=== PATIENT | male | born 1970 | race Two or more races ===

== ENCOUNTER 2018-04-13 04:38 | Emergency (ER) | payer SELFPAY ==
[2018-04-13] MEDS ORDERED: ASPIRIN 81 MG TABLET, CHEWABLE PO ONE (05:36)
--- NOTE | 2018-04-13 05:39 | RADIOLOGY REPORT (SQ) ---
EXAM DESCRIPTION: XR CHEST 2 VIEWS COMPLETED DATE/TME: 04/13/2018 00:00 CLINICAL HISTORY: 47 years Male, chest pain COMPARISON: None. FINDINGS: Moderate lung volume, clear parenchyma, normal cardiac silhouette, and intact bony thorax. IMPRESSION: No acute cardiopulmonary findings.
--- NOTE | 2018-04-13 05:41 | ER Document Report ---
ED Medical Screen (RME) - General Chief Complaint: Chest Pain Stated Complaint: CHEST PAIN Notes: 47-year-old male with hyperlipidemia presents to the emergency department with chest pain that started yesterday after eating at lunch that lasted about 5 minutes then subsided. At 3:00 this morning he had similar chest pain that woke him up was transient, and has had 3 episodes since. He describes the pain as burning and it radiated to his shoulders and his neck. Nothing provoked it. He denies fever, diaphoresis, chills, nausea, vomiting. His brother of a heart attack at the age of 36. I have greeted and performed a rapid initial assessment of this patient a comprehensive ED assessment and evaluation of the patient, analysis of test results and completion of the medical decision making process will be conducted by additional ED providers. - HPI Patient complains to provider of: chest pain Physical Exam - Vital signs Vitals: Temp Pulse Resp BP Pulse Ox 98.0 F 56 L 18 151/92 H 100 04/13/18 04:47 04/13/18 04:47 04/13/18 04:47 04/13/18 04:47 04/13/18 04:47 - Respiratory Respiratory status: No respiratory distress Chest status: Nontender Breath sounds: Normal Chest palpation: Normal - Cardiovascular Rhythm: Regular Heart sounds: Normal auscultation, S1 appreciated, S2 appreciated Murmur: No Course - Vital Signs Vital signs: Temp Pulse Resp BP Pulse Ox 98.0 F 56 L 18 151/92 H 99 04/13/18 04:47 04/13/18 04:47 04/13/18 04:47 04/13/18 04:47 04/13/18 05:06 Doctor's Discharge - Discharge Referrals: LOCALMD,NO [Primary Care Provider] - Follow up as needed
[2018-04-13 06:03] LABS: ABSOLUTE EOSINOPHILS # (AUTO) 0.1 10^3/uL (0.0-0.6); ABSOLUTE MONOCYTES (AUTO) 0.5 10^3/uL (0.1-1.4); ABSOLUTE NEUT (AUTO) 3.4 10^3/uL (1.7-8.2); BASOPHILS % (AUTO) 0.6 % (0-2); EOSINOPHILS % (AUTO) 1.9 % (0-6); HEMOGLOBIN 14.4 g/dL (13.5-17.0); LYMPHOCYTES % (AUTO) 19.6 % (13-45); MEAN CORPUSCULAR HEMOGLOBIN 31.4 pg (27.0-33.4); MEAN CORPUSCULAR HGB CONC 34.3 g/dL (32.0-36.0); MEAN CORPUSCULAR VOLUME 91 fl (80-97); MONOCYTES % (AUTO) 9.2 % (3-13); PLATELET COUNT 224 10^3/uL (150-450); RED BLOOD COUNT 4.59 10^6/uL (4.35-5.55); RED CELL DISTRIBUTION WIDTH 13.6 % (11.5-14.0); SEGMENTED NEUTROPHILS % (AUTO) 68.7 % (42-78); TOTAL CELLS COUNTED % (AUTO) 100 %
[2018-04-13 06:20] LABS: ALANINE AMINOTRANSFERASE 38 U/L (21-72); ALBUMIN 4.3 g/dL (3.5-5.0); ALKALINE PHOSPHATASE 71 U/L (38-126); ANION GAP 11 (5-19); ASPARTATE AMINO TRANSFERASE 28 U/L (17-59); BILIRUBIN,DIRECT 0.2 mg/dL (0.0-0.4); BILIRUBIN,TOTAL 0.3 mg/dL (0.2-1.3); BLOOD UREA NITROGEN 15 mg/dL (7-20); CALCIUM 9.8 mg/dL (8.4-10.2); CARBON DIOXIDE 27 mmol/L (22-30); CHLORIDE 105 mmol/L (98-107); GLUCOSE 99 mg/dL (75-110); POTASSIUM 4.6 mmol/L (3.6-5.0); SODIUM 143.3 mmol/L (137-145); TOTAL PROTEIN 7.4 g/dL (6.3-8.2)
--- NOTE | 2018-04-13 06:21 | ER Document Report ---
ED General <GONZALO BROWN - Last Filed: 04/13/18 11:35> - General Mode of Arrival: Ambulatory Information source: Patient <DAMIONJONA - Last Filed: 04/13/18 14:18> - General Stated Complaint: CHEST PAIN Time Seen by Provider: 04/13/18 06:08 Notes: Patient is a 47 year old male presenting to the emergency department complaining of chest pain onset around 0300 this morning. Patient states that the pain is intermittent and only last for approximately 2 minutes. 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 He reports a family history of diabetes and an [place] further reporting his brother dying from an [place] at the age of 36. He denies a significant medical or surgical history. (JONA BRUNO) - Related Data Allergies/Adverse Reactions: No Known Allergies Allergy (Unverified 04/13/18 07:14) Past Medical History - General Information source: Patient - Social History Smoking Status: Never Smoker Chew tobacco use (# tins/day): No Frequency of alcohol use: Social Drug Abuse: None Family History: Reviewed & Not Pertinent Patient has suicidal ideation: No Patient has homicidal ideation: No <JONA BRUNO - Last Filed: 04/13/18 14:18> Review of Systems - Review of Systems Constitutional: No symptoms reported EENT: No symptoms reported Cardiovascular: See HPI, Chest pain Respiratory: No symptoms reported Gastrointestinal: No symptoms reported Genitourinary: No symptoms reported Male Genitourinary: No symptoms reported Musculoskeletal: No symptoms reported Skin: No symptoms reported Hematologic/Lymphatic: No symptoms reported Neurological/Psychological: No symptoms reported -: Yes All other systems reviewed and negative <JONA BRUNO - Last Filed: 04/13/18 14:18> Physical Exam <GONZALO BROWN - Last Filed: 04/13/18 11:35> <JONA BRUNO - Last Filed: 04/13/18 14:18> - Vital signs Vitals: Temp Pulse Resp BP Pulse Ox 98.0 F 56 L 18 151/92 H 100 04/13/18 04:47 04/13/18 04:47 04/13/18 04:47 04/13/18 04:47 04/13/18 04:47 - Notes Notes: GENERAL: Alert, interacts well. No acute distress. HEAD: Normocephalic, atraumatic. EYES: Pupils equal, round, and reactive to light. Extraocular movements intact. ENT: Oral mucosa moist, tongue midline. NECK: Full range of motion. Supple. Trachea midline. LUNGS: Clear to auscultation bilaterally, no wheezes, rales, or rhonchi. No respiratory distress. HEART: Regular rate and rhythm. No murmurs, gallops, or rubs. ABDOMEN: Soft, minimal tenderness to the epigastric and RUQ. Non-distended. Bowel sounds present in all 4 quadrants. EXTREMITIES: Moves all 4 extremities spontaneously. No edema, radial and dorsalis pedis pulses 2/4 bilaterally. No cyanosis. NEUROLOGICAL: Alert and oriented x3. Normal speech. PSYCH: Normal affect, normal mood. SKIN: Warm, dry, normal turgor. No rashes or lesions noted. (JONA BRUNO) Course - Laboratory Result Diagrams: 04/13/18 05:50 04/13/18 05:50 - Diagnostic Test Radiology reviewed: Image reviewed, Reports reviewed - Chest x-ray is unremarkable - EKG Interpretation by Me EKG shows normal: Sinus rhythm, [place], Intervals, QRS Complexes, ST-T Waves Rate: Normal - 61 Rhythm: NSR When compared to previous EKG there are: Previous EKG unavailable - Consults Dr. Peck Time consulted: 07:45 Consulted provider: other - Will accept at [facility]. <GONZALO BROWN - Last Filed: 04/13/18 11:35> - Laboratory Result Diagrams: 04/13/18 05:50 04/13/18 05:50 <JONA BRUNO - Last Filed: 04/13/18 14:18> - Re-evaluation Re-evalutation: 04/13/18 06:55 About 35 minutes after I first evaluated the patient, he had another episode of substernal chest discomfort that lasted for 3-5 minutes according to the patient. The nurse notified me, I went to check on the patient and the pain had subsided and he felt fine again. I had initially told the nurse to give him some sublingual nitroglycerin, but after seeing the patient and being pain- free, ordered nitroglycerin paste, Plavix, Lovenox, and Pepcid. He did receive aspirin at triage earlier this morning. The patient's initial troponin came back positive at 0.331, this was reported about the same time he had his episode of chest pain. 04/13/18 07:12 The patient's pain returned again, he is looked quite apprehensive uncomfortable and holding his chest. He also began to perspire. He was given 1 sublingual nitroglycerin, and on recheck a few minutes later the pain had gone away again. In order for normal saline wide open and Lopressor 5 mg IV was also put in but had not been given at the time of the most recent reevaluation after the first sublingual nitroglycerin. Phone call was made to [facility] transfer line at 7:05 AM requesting transfer for a non-STEMI with ongoing chest pain. 04/13/18 07:15 A repeat EKG was ordered when his pain returned. By the time it was done he was pain-free and the EKG is unremarkable and unchanged from the initial EKG. 04/13/18 11:34 Patient transferred out at 10:20 AM by ground ALS going to [facility]. He was pain-free and feeling well at that time with stable vital signs. He was stable for transport at that time. (GONZALO BROWN) - Vital Signs Vital signs: Temp Pulse Resp BP Pulse Ox 98.4 F 56 L 12 118/85 97 04/13/18 10:07 04/13/18 04:47 04/13/18 10:01 04/13/18 10:01 04/13/18 10:01 Critical Care Note - Critical Care Note Total time excluding time spent on procedures (mins): 45 <GONZALO BROWN - Last Filed: 04/13/18 11:35> Discharge <GONZALO BROWN - Last Filed: 04/13/18 11:35> <JONA BRUNO - Last Filed: 04/13/18 14:18> - Discharge Clinical Impression: Non-STEMI (non-ST elevated myocardial infarction) Chest pain due to myocardial ischemia Qualifiers: Ischemic chest pain type: unstable angina pectoris Qualified Code(s): I20.0 - Unstable angina Condition: Stable Disposition: [facility] Referrals: LOCALMD,NO [NO LOCAL MD] - Follow up as needed Scribe Documentation - Scribe Written by Scribe:: Jordana Wellington, 04/13/2018 06:35 acting as scribe for :: Jonas <JONA BRUNO - Last Filed: 04/13/18 14:18>
[2018-04-13] MEDS ORDERED: NITROGLYCERIN 0.4 MG/TAB 25 TAB/BOTTLE SL ONE (06:45)
[2018-04-13] MEDS ORDERED: FAMOTIDINE INJ/PF 20 MG/2 ML SDV IV ONE (06:47)
[2018-04-13] MEDS ORDERED: CLOPIDOGREL BISULFATE 300 MG TABLET PO ONE (06:47)
[2018-04-13] MEDS ORDERED: NITROGLYCERIN 2% OINTMENT 1 GM PACKET TP ONE (06:47)
[2018-04-13] MEDS ORDERED: ENOXAPARIN SODIUM INJ 100 MG/1 ML DISP.SYRIN SUBCUT ONE (06:49)
[2018-04-13] MEDS ORDERED: ATORVASTATIN CALCIUM 40 MG TABLET PO ONE (06:51)
[2018-04-13] MEDS ORDERED: METOPROLOL TARTRATE PF/INJ 5 MG/5 ML SDV IV ONE (07:05)
[2018-04-13] MEDS ORDERED: NORMAL SALINE 1000 ML 1,000 ML IV ONE (07:06)
--- NOTE | 2018-04-13 09:39 | EKG REPORT ---
SEVERITY:- NORMAL ECG - SINUS RHYTHM : Confirmed by: Ottoniel Frazier 13-Apr-2018 09:39:10
--- NOTE | 2018-04-13 09:39 | EKG REPORT ---
SEVERITY:- NORMAL ECG - SINUS RHYTHM : Confirmed by: Ottoniel Frazier 13-Apr-2018 09:39:15
[2018-04-13 10:08] VITALS: BP 118/85
== END 2018-04-13 10:21 | disposition short-term general hospital (02) ==
LOC: ER 04:38
DX: I21.4 Non-ST elevation (NSTEMI) myocardial infarction (principal); I20.0 Unstable angina; R07.9 Chest pain, unspecified
CPT/HCPCS: 93005; 99291; 96372; 96374; 96375; 36415; 83735; 85025; 80053; 84484; 71046; 93010; J3490 ×2; J7030; J1650; S0028